=== PATIENT | female | born 1960 | race Caucasian/White ===

== ENCOUNTER 2018-12-30 18:19 | Emergency (ER) | payer BC ==
--- NOTE | 2018-12-30 19:40 | EDM.PDOC ---
ED HPI GENERAL MEDICAL PROBLEM - General Chief Complaint: Laceration Stated Complaint: PT FELL AND HURT HEAD Time Seen by Provider: 12/30/18 18:25 Source of Information: Reports: Patient, Family History Limitations: Reports: No Limitations - History of Present Illness INITIAL COMMENTS - FREE TEXT/NARRATIVE: HISTORY AND PHYSICAL: History of present illness: Patient is a 58-year-old female who presents to the ED today with her after falling while taking a shower and hitting her head with an open laceration. Patient's states she did not lose consciousness and he had witnessed the fall. Patients states that she had been having a few drinks and they had decided to shower. Patient's states that she had slipped and hit her head on the side of the bathtub. Patient denies feeling any dizziness that caused the event but rather a mechanical fall. Patient denies nausea, vomiting, headache, dizziness, blurry vision, fever, chills, chest pain, shortness of breath, palpitations, or all other GI, , cardiovascular, or respiratory concerns. She denies any health history. Review of systems: As per history of present illness and below otherwise all systems reviewed and negative. Past medical history: As per history of present illness and as reviewed below otherwise noncontributory. Surgical history: As per history of present illness and as reviewed below otherwise noncontributory. Social history: No reported history of drug or alcohol abuse. Family history: As per history of present illness and as reviewed below otherwise noncontributory. Physical exam: General: Patient sitting comfortably in no acute distress and nontoxic appearing. She is able to fully communicate complete sentences adherently. HEENT: There is a 4.5 cm laceration over the left eyebrow with ability to see exposed bone underneath, with minimal bleeding. There is also a contusion over the left zygomatic process that is erythematous and swollen without bleeding or any open or broken skin. Normocephalic, pupils reactive, negative for conjunctival pallor or scleral icterus, mucous membranes moist, throat clear, neck supple, nontender, trachea midline. No meningeal signs. Lungs: Clear to auscultation, breath sounds equal bilaterally, chest nontender. Heart: S1S2, regular, negative for clicks, rubs, or overt murmur. Abdomen: Soft, nondistended, nontender. Negative for masses or hepatosplenomegaly. Negative for costovertebral tenderness. No rigidity, rebound , guarding. Pelvis: Stable nontender. Genitourinary: Deferred. Rectal: Deferred. Extremities: Atraumatic, negative for cords or calf pain. Neurovascular unremarkable. Neuro: Awake, alert, oriented. Cranial nerves II through XII unremarkable. Cerebellum unremarkable. Motor and sensory unremarkable throughout. Exam nonfocal. Notes: Will do head CT since patient did fall and hit head following a few alcoholic beverages. Head CT shows no acute intracranial findings. Supportive care measures were reviewed and discussed with patient and her . They are agreeable to plan of care with any questions or concerns at this time. Diagnostics: Head CT Therapeutics: Sutures Prescriptions: None Impression: 1. head injury 2. Forehead laceration Plan: 1. Keep sutures clean and dry. Avoid soaking wound in water for long periods of time such as with swimming. 2. You can use ibuprofen and Tylenol as needed for pain as charted. 3. Follow-up with her primary care provider as discussed. 4. Return to the ED as needed and as discussed. You do have dissolvable sutures that if these do not come out within the next 7-10 days please return for suture removal. Definitive disposition and diagnosis as appropriate pending reevaluation and review of above. - Related Data Allergies Allergy/AdvReac Type Severity Reaction Status Date / Time bee sting Allergy Swelling Uncoded 12/30/18 18:27 Home Meds: Home Meds Lisinopril 10 mg PO BID 12/30/18 [History] Past Medical History - Past Health History Medical/Surgical History: Denies Medical/Surgical History Cardiovascular History: Reports: Hypertension - Infectious Disease History Infectious Disease History: Reports: None Social & Family History - Family History Family Medical History: Noncontributory - Tobacco Use Smoking Status *Q: Current Every Day Smoker Years of Tobacco use: 9 Packs/Tins Daily: 0.5 - Caffeine Use Caffeine Use: Reports: None - Alcohol Use Days Per Week of Alcohol Use: 7 Number of Drinks Per Day: 2 Total Drinks Per Week: 14 - Recreational Drug Use Recreational Drug Use: No ED ROS GENERAL - Review of Systems Review Of Systems: ROS reveals no pertinent complaints other than HPI. ED EXAM, SKIN/RASH Exam: See Below (See dictation) ED SKIN PROCEDURES - Laceration/Wound Repair Left Forehead Lac/Wound length In cm: 4.5 Appearance: Subcutaneous, Linear, Clean Distal NVT: Neuro & Vascular Intact, No Tendon Injury Anesthetic Type: Local Local Anesthesia - Lidocaine (Xylocaine): 1% Plain Local Anesthetic Volume: 5cc Skin Prep: Chlorhexidine (Hibiciens) Saline Irrigation (cc's): 25 Exploration/Debridement/Repair: Wound Explored, Explored to Base, No Foreign Material Found Closed with: Sutures Suture Size: other (5-0) # of Sutures: 9 Suture Type: Interrupted, Other (Chromic gut) Drain Placement: No Sterile Dressing Applied: Nurse Tetanus Status Addressed: Yes Complications: No Course - Vital Signs Last Recorded V/S: Last Vital Signs Temp 97.4 F 12/30/18 18:28 Pulse 122 H 12/30/18 18:28 Resp 18 12/30/18 18:28 BP 133/84 12/30/18 18:28 Pulse Ox 98 12/30/18 18:28 - Orders/Labs/Meds Orders: Active Orders 24 hr Category Date Time Status Accu Check [Blood Glucose Check, Bedside] [RC] ONETIME Care 12/30/18 18:25 Active Meds: Medications Discontinued Medications Generic Name Dose Route Start Last Admin Trade Name Keshavq PRN Reason Stop Dose Admin Bacitracin 1 dose 12/30/18 19:41 12/30/18 19:46 Bacitracin Oint 1 Gm TOP 12/30/18 19:42 1 dose ONETIME ONE Administration Lidocaine HCl Confirm 12/30/18 18:54 12/30/18 19:41 Xylocaine-Mpf 1% Administered 12/30/18 18:55 Not Given Dose 5 mls @ as directed .ROUTE .STK-MED ONE Lidocaine HCl 5 ml 12/30/18 19:37 12/30/18 19:46 Xylocaine-Mpf 1% INJECT 12/30/18 19:38 5 ml ONETIME ONE Administration Departure - Departure Time of Disposition: 20:37 Disposition: Home, Self-Care 01 Condition: Good Clinical Impression: Laceration, Head injury - Discharge Information Referrals: PCP,None [Primary Care Provider] - Forms: ED Department Discharge Additional Instructions: The following information is given to patients seen in the emergency department who are being discharged to home. This information is to outline your options for follow-up care. We provide all patients seen in our emergency department with a follow-up referral. The need for follow-up, as well as the timing and circumstances, are variable depending upon the specifics of your emergency department visit. If you don't have a primary care physician on staff, we will provide you with a referral. We always advise you to contact your personal physician following an emergency department visit to inform them of the circumstance of the visit and for follow-up with them and/or the need for any referrals to a consulting specialist. The emergency department will also refer you to a specialist when appropriate. This referral assures that you have the opportunity for follow-up care with a specialist. All of these measure are taken in an effort to provide you with optimal care, which includes your follow-up. Under all circumstances we always encourage you to contact your private physician who remains a resource for coordinating your care. When calling for follow-up care, please make the office aware that this follow-up is from your recent emergency room visit. If for any reason you are refused follow-up, please contact the [facility] Emergency Department at and asked to speak to the emergency department charge nurse. [facility] [address] [place] [address] [place] [address] 1. Keep sutures clean and dry. Avoid soaking wound in water for long periods of time such as with swimming. 2. You can use ibuprofen and Tylenol as needed for pain as charted. 3. Follow-up with her primary care provider as discussed. 4. Return to the ED as needed and as discussed. You do have dissolvable sutures that if these do not come out within the next 7-10 days please return for suture removal. - My Orders Last 24 Hours: My Active Orders 12/30/18 18:25 Accu Check [Blood Glucose Check, Bedside] [RC] ONETIME - Assessment/Plan Last 24 Hours: My Active Orders 12/30/18 18:25 Accu Check [Blood Glucose Check, Bedside] [RC] ONETIME
[2018-12-30] MEDS ORDERED: Bacitracin Oint 1 GM U/D Packet TOP ONE (19:41)
--- NOTE | 2018-12-30 20:36 | CT ---
INDICATION: Fall. Pain. CT HEAD WITHOUT CONTRAST TECHNIQUE: Multiple axial CT images were performed through the head without intravenous contrast administration. COMPARISON: No previous studies are currently available for comparison. FINDINGS: No acute intracranial hemorrhage is identified. No extra-axial collections are evident and there is no mass effect or midline shift. Ventricles are normal in size and configuration. Brain parenchyma appears normal with unremarkable kline-white differentiation. There is mild left periorbital superficial edema and subcutaneous gas bubbles consistent with skin laceration. Osseous structures are within normal limits and no fractures are seen. Included portions of the paranasal sinuses and mastoid air cells are normally aerated aside from a small mucous retention cyst or polyp in the inferior right maxillary sinus. IMPRESSION: 1. No intracranial abnormality identified. 2. Left periorbital edema and skin laceration. No fracture identified. DANIELLA FITCH MD [facility] Dictated by Angelo Fitch MD @ 12/30/2018 8:29:39 PM Dictated by: Angelo Ficth MD @ 12/30/2018 20:35:15 (Electronically Signed)
[2018-12-30] MEDS ORDERED: Ketorolac 60 MG/2 ML SDV IM ONE (20:38)
[2018-12-30 20:54] VITALS: BP 114/78
== END 2018-12-30 20:54 | disposition home or self-care (01) ==
LOC: MW.ED 18:19
DX: S01.81XA Laceration without foreign body of other part of head, initial encounter (principal); S09.90XA Unspecified injury of head, initial encounter; Z91.030 Bee allergy status; F17.210 Nicotine dependence, cigarettes, uncomplicated; W18.2XXA Fall in (into) shower or empty bathtub, initial encounter
CPT/HCPCS: 12013; 70450; 96372; 99283; J1885; J2001